=== PATIENT | male | born 1955 | race African-American/Black ===

== ENCOUNTER → 2020-12-22 | Outpatient (CLI) | payer OTHER ==
[~2020-12-22] MED LIST: ASA81BEC PO; ASPIRIN325; CO-ENZYME Q-1010 MG PO; IMDUR 60 MG TAB60 M1 PO; LISINOPRIL20 MG PO; LOSARTAN POTAS100 MG PO; METFORMIN HCL500 MG PO; METOPROLOL SUCC25 M1 PO; NITROGLYCERIN0.4 MG SUBLING; OMEGA-3 FISH1200 MG PO; SIMVASTATIN40 MG PO; SPIRONOLACTONE25 MG PO; VITAMIN B-121000 MC3 PO; ZOCOR 20 MG TAB20 M1 PO; ZPAK PO
== END ==
LOC: LAB 09:35
PROVIDERS: ATTEND Surgery
DX: Z01.812 Encounter for preprocedural laboratory examination (principal); Z20.822 Contact with and (suspected) exposure to COVID-19

== ENCOUNTER 2020-12-27 06:08 | Day surgery (SDC) | payer OTHER ==
[~2020-12-27] VITALS: Ht 188 cm; Wt 114.3 kg
--- NOTE | ~2020-12-27 | O ---
[facility] [place] [address] OPERATIVE REPORT Name: ED JUAN JR Room #: 150-3 [facility]..#: [id number] Admission: 12/27/20 Attend Phys: Mukul Yang MD Discharge: Date of : 53 Report #: [id number] THIS REPORT FOR: cc: Miriam Washington MD, Cora A. MD Franey,Mukul Aggarwal MD ~ DATE OF SERVICE: 12/27/[address] Mukul Yang and Dr. Miriam Washington. PREOPERATIVE DIAGNOSIS: Ventral umbilical hernia. POSTOPERATIVE DIAGNOSIS: Ventral umbilical hernia. PROCEDURE: Ventral umbilical hernia repair with Ventralex hernia mesh. SURGEON: Mukul Yang MD ANESTHESIA: Local IV sedation. DESCRIPTION OF PROCEDURE: The patient was brought to the operating room and placed on operative table in the supine position. Sequential compression devices were in place for DVT prophylaxis. There was no indication for preoperative antibiotics. The patient underwent IV sedation and the abdomen was then prepped and draped in a sterile fashion. Skin and subcutaneous tissue were then infiltrated with 0.5% Marcaine and 1% Xylocaine with epinephrine. Transverse infraumbilical skin incision was then performed using #15 scalpel blade. Hemostasis obtained using electrocautery. Dissection was carried down through subcutaneous tissue to this hernia sac, which was dissected free and excised. Upon dissecting further cephalad from the umbilicus, there was a second small hernia defect with some incarcerated preperitoneal fat. This incarcerated preperitoneal fat was then dissected free and reduced back through the small fascial defect, which was then closed with an interrupted [id number] 0 Prolene suture. A medium Ventralex hernia mesh was then inserted intraabdominally and then secured transfascially circumferentially using interrupted horizontal mattress 0 Prolene sutures. The fascia was then closed over the mesh using interrupted gshsyv-oj-bchpf #1 PDS sutures. The tails were cut and secured superiorly and inferiorly with simple interrupted 2-0 Vicryl sutures. A single suture was then placed through the remaining opening at the side of the Ventralex tails. The umbilicus was then tacked to the fascia using a simple interrupted 2-0 chromic suture. Deep and superficial subcutaneous tissue was then reapproximated using simple interrupted 2-0 chromic sutures and the skin then closed with a running 4-0 subcuticular Vicryl stitch. The wound was then dressed with Dermabond, Telfa, 4 x 4 gauze, sponge and tape. The patient was then awakened from the IV sedation and taken to the recovery [address] [address] OPERATIVE REPORT Name: ED JUAN Room #: 150-3 [facility] M..#: [id number] Admission: 12/27/20 Attend Phys: Mukul Yang MD Discharge: Date of : 53 Report #: [id number] room awake, alert and in good condition. Estimated blood loss was approximately 10 mL and the patient tolerated procedure well. All sponge, lap and instrument counts correct x 2. By: [id number] Mukul Yang MD /nt
[2020-12-27 06:42] VITALS: BP 117/64
[2020-12-27 07:05] LABS: CALCIUM 9.1 mg/dL (8.5-10.1); CREATININE 1.3 mg/dL (0.7-1.3); POTASSIUM 4.1 mmol/L (3.5-5.1)
[2020-12-27] MEDS ORDERED: HYDROCODON-ACE1 EAC7 PO (08:16)
[2020-12-27 10:30] VITALS: BP 117/64
== END 2020-12-27 11:20 | disposition home or self-care (01) ==
LOC: OR 06:08 → TBA 06:08 → OR 09:27
PROVIDERS: ATTEND Surgery
DX: K42.0 Umbilical hernia with obstruction, without gangrene (principal); I10 Essential (primary) hypertension; E78.00 Pure hypercholesterolemia, unspecified; E11.9 Type 2 diabetes mellitus without complications; J45.909 Unspecified asthma, uncomplicated; G47.30 Sleep apnea, unspecified; Z98.890 Other specified postprocedural states; Z79.899 Other long term (current) drug therapy; Z79.82 Long term (current) use of aspirin
CPT/HCPCS: 50010; 50101; 50130; 50386; 50417; 54118; 56524; 56525; 56526; 62110; 62850; 70005

== ENCOUNTER 2021-01-03 15:24 | Inpatient (IN) | payer OTHER ==
[~2021-01-03] VITALS: Ht 190.5 cm; Wt 110.2 kg
[2021-01-03] VITALS (11 sets, daily range): BP systolic 91–115; BP diastolic 55–80
[~2021-01-03 15:24] MED LIST changes: +HYDROCODON-ACE1 EAC7 PO
[2021-01-03 16:01] LABS: ABSOLUTE NEUTROPHILS 11.4 thou/uL (1.4-8.2); BASOPHILS 0.3 % (0.0-2.0); EOSINOPHILS 1.5 % (0.0-3.0); HEMATOCRIT 36.4 % (42.0-52.0); HEMOGLOBIN 11.3 gm/dL (14.0-18.0); LYMPHOCYTES 8.1 % (24.0-44.0); MCH 25.8 pg (26.0-34.0); MCHC 30.9 g/dL (28.0-37.0); MCV 83.3 fL (80.0-100.0); MONOCYTES 5.7 % (1.0-8.0); PLATELET COUNT 196 thou/uL (150-400); POLYS 84.4 % (36.0-66.0); RBC 4.37 mil/uL (4.50-6.00); RDW 14.1 % (10.5-14.5); WBC 13.5 thou/uL (4.0-11.0)
[2021-01-03 16:14] LABS: CALCIUM 8.8 mg/dL (8.5-10.1); POTASSIUM 3.4 mmol/L (3.5-5.1)
--- NOTE | 2021-01-03 16:18 | NUR ---
PT'S , ELIZABETH, [phone]
[2021-01-03 16:29] LABS: ALBUMIN 3.5 g/dL (3.4-5.0); DIRECT BILIRUBIN 0.3 mg/dL (<0.1-0.2); TOTAL BILIRUBIN 0.6 mg/dL (0.2-1.0); TOTAL PROTEIN 7.4 g/dL (6.4-8.2); TROPONIN-I 0.2 ng/mL (<0.06)
[2021-01-03 16:49] LABS: URINE BILIRUBIN NEGATIVE (Negative); URINE BLOOD 2+ (Negative); URINE CLARITY CLEAR; URINE COLOR YELLOW; URINE GLUCOSE-RANDOM* 1+ (Negative); URINE KETONES NEGATIVE (Negative); URINE LEUKOCYTES-REFLEX NEGATIVE (Negative); URINE NITRITE-REFLEX NEGATIVE (Negative); URINE PROTEIN (DIPSTICK) 3+ (Negative); URINE SPECIFIC GRAVITY 1.025 (1.005-1.035)
[2021-01-03 17:00] LABS: MUCUS None Seen strn/LPF (None Seen); SQUAMOUS 4-10 Moderate /LPF (0-3)
[2021-01-03 17:01] LABS: BACTERIA-REFLEX 1-9 Few /HPF (None Seen); CRYSTALS None Seen /LPF (None Seen); FINE GRANULAR CASTS 0-3 Few /LPF (None Seen); URINE WBC-REFLEX 6-15 Few /HPF (0-5)
[2021-01-03 17:40] LABS: APTT 25.5 Seconds (24.5-32.8); INR 1.1; PROTIME 11.4 Seconds (9.3-11.4)
--- NOTE | 2021-01-03 18:30 | NUR ---
DR HORTA AT BEDSIDE SEEING PATIENT
[2021-01-03 22:09] LABS: HEMATOCRIT 33.6 % (42.0-52.0); HEMOGLOBIN 10.5 gm/dL (14.0-18.0); MCH 26.3 pg (26.0-34.0); MCHC 31.3 g/dL (28.0-37.0); MCV 83.9 fL (80.0-100.0); RDW 14.2 % (10.5-14.5); WBC 10.1 thou/uL (4.0-11.0)
[2021-01-04] VITALS (44 sets, daily range): BP systolic 87–153; BP diastolic 51–87
--- NOTE | 2021-01-04 01:00 | NUR ---
PT ARRIVED TO ICU RM 236 AT 2114. THIS RN ASSUMED CARE AT THIS TIME. PT IS AXOX4, WEARING 2L NC, AND ON BEDREST POST IR PROCEDURE. WILL FOLLOW PLAN OF CARE AND CONTINUE TO MONITOR.
[2021-01-04 06:26] LABS: HEMOGLOBIN 9.2 gm/dL (14.0-18.0); MCH 26.5 pg (26.0-34.0); MCHC 31.8 g/dL (28.0-37.0); MCV 83.1 fL (80.0-100.0); RBC 3.49 mil/uL (4.50-6.00); RDW 13.8 % (10.5-14.5); WBC 8.6 thou/uL (4.0-11.0)
[2021-01-04] MEDS ORDERED: JARDIANCE10 MG PO (06:31)
[2021-01-04 06:41] LABS: CREATININE 1.7 mg/dL (0.7-1.3)
[2021-01-04 06:42] LABS: POTASSIUM 5.4 mmol/L (3.5-5.1); TROPONIN-I 1.95 ng/mL (<0.06)
--- NOTE | 2021-01-04 07:17 | EKG ---
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 : 1955 Requested By: Rashawn Grewal Order Number: [id number] MD: Ammon Sharma Measurements Intervals [place] Rate: 115 P: 65 NC: 139 QRS: -36 QRSD: 91 T: 92 QT: 356 QTc: 493 Interpretive Statements Sinus tachycardia Abnormal R-wave progression, early transition Probable left ventricular hypertrophy Ischemic changes lateral leads BOrderline ST elevation V1-2 Borderline prolonged QT interval Compared to ECG 07/03/2010 20:40:54 Sinus rhythm no longer present Electronically Signed On 01-04-2021 7:17:31 CDT by Ammon Sharma [email or web address] <ELECTRONICALLY SIGNED> By: Ammon Sharma MD, FACC 01/04/21 0717 1601 1601 Ammon Sharma MD, [facility] /EPI
--- NOTE | 2021-01-04 09:01 | EKG ---
[place] [address] [facility] [address] [place] [address] ELECTROCARDIOGRAM REPORT Name: ED JUAN Room #: 236-P ADM IN M.R.#: [id number] Admission: 01/03/21 Attend Phys: Sendy Mott MD Discharge: Date of : 53 Report #: [id number] [facility] Test Date: 2021-01-04 Test Time: 07:37:14 Pat Name: ED JUAN Department: Room: 236 P Gender: M Certified Juvenile Probation Officer: NORRIS : 1955 Requested By: Ray Almonte Order Number: [id number] MD: Brice Craft Measurements Intervals [place] Rate: 90 P: 39 AK: 139 QRS: -31 QRSD: 89 T: -5 QT: 395 QTc: 484 Interpretive Statements Sinus rhythm Abnormal R-wave progression, early transition Leftward axis Nonspecific T wave abnormality Compared to ECG 01/03/2021 16:01:22 ST and T wave abnormality most prominent Sinus tachycardia no longer present Electronically Signed On 01-04-2021 9:00:56 CDT by Brice Craft [email or web address] <ELECTRONICALLY SIGNED> By: Brice Craft MD, [facility] 01/04/21 0900 0737 0737 Brice Craft MD, [facility] /EPI
--- NOTE | 2021-01-04 10:22 | 2DMMODE ---
[facility] [address] [place] [address] 2 D/M-MODE ECHOCARDIOGRAM Name: ED JUAN Room #: 236-P ADM IN M.R.#: [id number] Admission: 01/03/21 Attend Phys: Sendy Mott MD Discharge: Date of : 53 Report #: [id number] THIS REPORT FOR: cc: Miriam Washington MD, Cora A. MD Lammoglia, Francisco J. MD ~ APPROVED REPORT Study performed: 01/04/2021 08:13:45 EXAM: Comprehensive 2D, Doppler, and color-flow Echocardiogram Patient Location: ICU Room #: 236 Status: routine BSA: 2.39 HR: 86 bpm BP: 124/80 mmHg Rhythm: NSR Other Information Study Quality: Good Indications Pulmonary Embolism Diabetes Dyspnea CAD Hypertension/HDD 2D Dimensions RVDd: 57.13 mm IVSd: 9.84 (7-11mm) LVOT Diam: 22.72 (18-24mm) LVDd: 36.01 mm PWd: 9.13 (7-11mm) Ascending Ao: 32.73 (22-36mm) LVDs: 25.19 (25-40mm) Left Atrium: 31.76 (27-40mm) Aortic Root: 33.28 mm IVC: 28.00 mm Volumes Left Atrial Volume (Systole) Single Plane 4CH: 36.05 mL Single Plane 2CH: 39.95 mL LA ESV Index: 18.00 mL/m2 Aortic Valve [facility] [address] [place] [address] 2 D/M-MODE ECHOCARDIOGRAM Name: ED JUAN Room #: 236-P [facility] IN M.R.#: [id number] Admission: 01/03/21 Attend Phys: Alona Kumar Discharge: Date of : 53 Report #: [id number] AoV Peak Star.: 0.86 m/s AO Peak Gr.: 2.94 mmHg LVOT Max P.79 mmHg LVOT Max V: 0.83 m/s RANDAL Vmax: 3.94 cm2 Mitral Valve E/A Ratio: 0.8 MV Decel. Time: 215.39 ms MV E Max Star.: 0.56 m/s MV A Star.: 0.70 m/s MV PHT: 62.46 ms IVRT: 129.18 ms Pulmonary Valve PV Peak Star.: 0.77 m/s PV Peak Gr.: 2.36 mmHg Pulmonary Vein P Vein S: 0.40 m/s P Vein A: 0.21 m/s P Vein D: 0.30 m/s P Vein A Dur.: 101.5 msec P Vein S/D Ratio: 1.33 Tricuspid Valve TR Peak Star.: 2.52 m/s TR Peak Gr.: 25.43 mmHg PA Pressure: 40.00 mmHg Left Ventricle The left ventricle is normal size. There is normal LV segmental wall motion. There is normal left ventricular wall thickness. The left ventricular systolic function is normal. The left ventricular ejection fraction is within the normal range. LVEF is 55-60%. Grade I - abnormal relaxation pattern. Right Ventricle Right ventricle is dilated. The right ventricle free wall is mildly hypertrophied. Right ventricle is hypokinetic. Atria The left atrium size is normal. Right atrium is dilated. There is a mobile stranding in the right atrium likely a Chiari network. IF CLINICALLY RELEVANT CONSIDER SIMRAN FOR FURTHER CHARACTERIZATION Aortic Valve The aortic valve is normal in structure. No aortic regurgitation is present. There is no aortic valvular stenosis. [facility] [address] [place] [address] 2 D/M-MODE ECHOCARDIOGRAM Name: ED JUAN Room #: 236-P [facility].#: [id number] Admission: 01/03/21 Attend Phys: Alona Kumar Discharge: Date of : 53 Report #: [id number] Mitral Valve The mitral valve is normal in structure. Trace mitral regurgitation. No evidence of mitral valve stenosis. Tricuspid Valve The tricuspid valve is normal in structure. There is mild tricuspid regurgitation. Estimated PAP 40 mmHg. There is mild-moderate pulmonary hypertension. Pulmonic Valve The pulmonary valve is normal in structure. Trace pulmonic regurgitation. Great Vessels The aortic root is normal in size. The inferior vena cava is dilated with no inspiratory collapse. Pericardium There is no pericardial effusion. <Conclusion> The left ventricle is normal size. LVEF is 55-60%. Right ventricle is dilated. Right ventricle is hypokinetic. The right ventricle free wall is mildly hypertrophied. Right atrium is dilated. There is a mobile stranding in the right atrium likely a Chiari network. IF CLINICALLY RELEVANT CONSIDER SIMRAN FOR FURTHER CHARACTERIZATION The aortic valve is normal in structure. The mitral valve is normal in structure. Trace mitral regurgitation. The tricuspid valve is normal in structure. There is mild tricuspid regurgitation. Estimated PAP 40 mmHg. There is mild-moderate pulmonary hypertension. The pulmonary valve is normal in structure. Trace pulmonic regurgitation. There is no pericardial effusion. <ELECTRONICALLY SIGNED> By: Eliezer Love MD 01/04/21 1021 1021 1021 Eliezer Love MD /INF
--- NOTE | 2021-01-04 10:55 | NUR ---
chart review, cm visited with pt and his at bedside, cm cont to wear face mask and shield during visit. pt able to make his needs know, a & o x4. willard reported he is independent, manage own medication, drives vehicle. live in house with his , about 12 steps up from basement " even after last surgery was able to walk up to get into home with out diff. use cpap to sleep. no hh or rehab in past"/willard. will cont following as needed for dc needs. discussed during am rounds.
[2021-01-04 16:38] LABS: HEMATOCRIT 32.4 % (42.0-52.0); HEMOGLOBIN 10.1 gm/dL (14.0-18.0); MCH 26.4 pg (26.0-34.0); MCHC 31.1 g/dL (28.0-37.0); MCV 84.7 fL (80.0-100.0); RBC 3.82 mil/uL (4.50-6.00); RDW 14.7 % (10.5-14.5); WBC 9.8 thou/uL (4.0-11.0)
[2021-01-04 17:49] LABS: ALBUMIN 3.4 g/dL (3.4-5.0); DIRECT BILIRUBIN 0.2 mg/dL (<0.1-0.2); TOTAL BILIRUBIN 0.4 mg/dL (0.2-1.0); TOTAL PROTEIN 6.9 g/dL (6.4-8.2)
--- NOTE | 2021-01-04 17:57 | NUR ---
ASSUMED CARE OF PATIENT AT 1400, ALERT AND ORIENTED. STABL VSS. HEPARIN GTT INFUSING. APPT THERAPEUTIC. REDRAW SCHEDULED FOR AM. CONSULT CARDIOLOGY FOR SIMRAN IN AM. NPO STARTS AT MIDNOC. PATIENT TRANSFERED TO CCU ROOM 204.
[2021-01-05 03:33] VITALS: BP 137/86
[2021-01-05 05:17] LABS: HEMATOCRIT 29.7 % (42.0-52.0); HEMOGLOBIN 9.6 gm/dL (14.0-18.0); MCH 26.8 pg (26.0-34.0); MCHC 32.3 g/dL (28.0-37.0); MCV 82.9 fL (80.0-100.0); RBC 3.58 mil/uL (4.50-6.00); RDW 14.1 % (10.5-14.5); WBC 8.2 thou/uL (4.0-11.0)
--- NOTE | 2021-01-05 08:10 | NUR ---
SLEPT MOST OF SHIFT. DENIES COMPLAINTS OF SHORTNESS OF AIR OR PAIN. STAYED IN BED THROUGHOUT SHIFT. MAINTAIN HEPARIN GTT PER PROTOCOL. NPO PAST MIDNIGHT FOR AM SIMRAN. WORKING ON GOALS AND PLAN OF CARE FOR NOC. PROGRESSING SLOWLY TOWARDS DISCHARGE GOALS. CONTINUE TO ASSES CLOSELY.
[2021-01-05 08:20] LABS: CALCIUM 8.7 mg/dL (8.5-10.1); CREATININE 1.4 mg/dL (0.7-1.3); POTASSIUM 4.2 mmol/L (3.5-5.1)
--- NOTE | 2021-01-05 09:13 | NUR ---
PT TRANSFERRED BACK TO ROOM 204 AT 0900 IN BED BY RN. STEINER. HR 78: BP 131/61; R 17; SAT 95% ON RA. PT AWAKE AND ALERT. TOLERATED SIMRAN WELL. DRANK WATER WITHOUT DIFFICULTY. REPORT TO KAM DAWKINS. 300 CC NS INFUSED
--- NOTE | 2021-01-05 09:52 | NUR ---
ASSUMED PT CARE AT 0700. PT WAS PREPARING TO GO FOR HIS SIMRAN. PT NOTIFIED OF PLAN OF CARE FOR THE DAY THROUGH TEXT. PT RETURNED FROM HIS SIMRAN AT 0900. PT DENIES PAIN. PT WENT FOR ABD ULTRASOUND AT 0915. VSS. WILL CONTINUE TO MONITOR.
[2021-01-05 11:21] LABS: % SATURATION 16 % (20-39); IRON 38 ug/dL (65-175); TIBC 245 ug/dL (250-450)
--- NOTE | 2021-01-05 12:18 | TEE ---
[facility] [place] [address] TRANSESOPHAGEAL ECHOCARDIOGRAM Name: ED JUAN Room #: 204-P [facility] IN M.R.#: [id number] Admission: 01/03/21 Attend Phys: Sendy Mott MD Discharge: Date of : 53 Report #: [id number] THIS REPORT FOR: cc: Miriam Washington MD, Cora A. MD Santiago, Patrick MD [facility] ~ APPROVED REPORT Study performed: 01/05/2021 07:48:21 EXAM: Comprehensive 2D, Doppler, and color-flow Echocardiogram Patient Location: In-Patient Room #: 9 Status: routine BSA: 2.39 HR: 85 bpm BP: 145/81 mmHg Rhythm: NSR Other Information Study Quality: Good Indications Thrombus Echo Enhancing Agent Indication: Rule out Shunt Agent(s) / Amount(s) Used: Agitated Saline 7 cc Procedure After obtaining informed consent, patient underwent transesophageal echo in the [facility]. Type of Sedation : Conscious Sedation Sedation was administered by Nurse. Sedation was achieved intravenously with: Versed (4 mg) Fentanyl (50 mcg) Transesophageal probe was inserted and advanced into esophagus without difficulty by Ammon Sharma MD. Echo enhancement indication: R/O Septal defect. Echo enhancement agent administered: Agitated Saline The SIMRAN was performed without complications. Throughout the procedure, the blood pressure, pulse oximetry, cardiac rhythm, and rate were monitored. [facility] [address] [place] [address] TRANSESOPHAGEAL ECHOCARDIOGRAM Name: ED JUAN JR Room #: 204-P ADM IN M.R.#: [id number] Admission: 01/03/21 Attend Phys: Alona Kumar Discharge: Date of : 53 Report #: [id number] The patient tolerated the procedure without adverse effects. Recovery from conscious sedation was uneventful and vital signs were stable. Left Ventricle The left ventricle is normal size. There is normal LV segmental wall motion. There is normal left ventricular wall thickness. The left ventricular systolic function is normal. The left ventricular ejection fraction is within the normal range. LVEF is 55-60%. Right Ventricle Right ventricle is dilated. Right ventricle is hypokinetic. Atria The left atrium size is normal. Interatrial septum is intact without evidence of ASD or PFO. Right atrium is dilated. Chiari network vs thrombus is noted in the right atrium. Aortic Valve The aortic valve is normal in structure. No aortic regurgitation is present. There is no aortic valvular stenosis. Mitral Valve The mitral valve is normal in structure. Trace mitral regurgitation. No evidence of mitral valve stenosis. Tricuspid Valve The tricuspid valve is normal in structure. Mild tricuspid regurgitation. Pulmonic Valve The pulmonary valve is normal in structure. There is no pulmonic valvular regurgitation. Great Vessels The aortic root is normal in size. IVC is dilated. Pericardium There is no pericardial effusion. <Conclusion> Consent was obtained Esophageal probe was advanced without difficulty Normal left ventricular size/wall thickness Ejection fraction 55% [facility] [address] [place] [address] TRANSESOPHAGEAL ECHOCARDIOGRAM Name: ED JUAN Room #: 204-P ADM IN M.R.#: [id number] Admission: 01/03/21 Attend Phys: Alona Kumar Discharge: Date of : 53 Report #: [id number] Normal atrial size Right ventricle mildly dilated/hypokinetic Normal aortic valve structure and function Normal mitral valve structure and function Left atrial appendage, no obvious mass or clot detected No evidence of tricuspid valve insufficiency Linear mobile echodensity in the high right atrium with apparent insertion in the vena cava This mobile echodensity suspicious for clot, - 2 cm in length and 0.6 cm in width Aorta: no calcification detected No evidence of ASD/VSD by color-flow Doppler study. Patient tolerate procedure well <ELECTRONICALLY SIGNED> By: Ammon Sharma MD, FACC 01/05/218 17 17 Ammon Sharma MD, FACC /INF
[2021-01-05 15:18] VITALS: BP 149/88
[2021-01-05 19:39] VITALS: BP 136/87
[2021-01-06 04:14] VITALS: BP 152/79
--- NOTE | 2021-01-06 06:50 | NUR ---
PT SLEPT ON AND OFF THRU THE NOC, HEPARIN GTT TITRATED PER DVT PROTOCOL, PT UP ADLIB IN ROOM, ASSESSMENT CHARTED, VSS, NO C/O PAIN, WILL CON'T TO MONITOR PER PPOC.
[2021-01-06 07:35] VITALS: BP 129/82
[2021-01-06 09:11] LABS: HEMATOCRIT 31.1 % (42.0-52.0); RDW 13.9 % (10.5-14.5); WBC 9.3 thou/uL (4.0-11.0)
[2021-01-06 09:13] LABS: MCH 26.6 pg (26.0-34.0); MCHC 32.1 g/dL (28.0-37.0); MCV 82.9 fL (80.0-100.0); PLATELET COUNT 175 thou/uL (150-400); RBC 3.75 mil/uL (4.50-6.00)
[2021-01-06 09:19] LABS: ALBUMIN 3.2 g/dL (3.4-5.0); CALCIUM 8.9 mg/dL (8.5-10.1); CREATININE 1.4 mg/dL (0.7-1.3); MAGNESIUM 1.9 mg/dL (1.8-2.4); PHOSPHORUS 2.5 mg/dL (2.6-4.7); TOTAL BILIRUBIN 0.5 mg/dL (0.2-1.0); TOTAL PROTEIN 6.8 g/dL (6.4-8.2)
[2021-01-06 09:49] LABS: ABSOLUTE NEUTROPHILS 6.8 thou/uL (1.4-8.2); PLATELET ESTIMATE NORMAL
[2021-01-06 11:52] VITALS: BP 102/58
--- NOTE | 2021-01-06 12:08 | NUR ---
PT SITTING UP IN CHAIR FACETIMING FAMILY. VSS. NOON ASSESSMENT PERFORMED. VSS. WILL CONTINUE TO MONITOR.
[2021-01-06 15:34] VITALS: BP 109/62
[2021-01-06 19:50] VITALS: BP 124/59
--- NOTE | 2021-01-07 04:35 | NUR ---
PT RESTING QUIETLY IN ROOM HEPARIN INFUSING, VSS, NO C/O PAIN, ASSESSMENT CHARTED, WILL CON'T TO MONITOR PER PPOC.
[2021-01-07 04:36] VITALS: BP 135/72
[2021-01-07 04:41] LABS: ABSOLUTE RETIC COUNT 0.1171 10^6/uL; OBSERVED RETIC COUNT 3.22 % (0.6-2.6)
[2021-01-07 05:06] LABS: CHOLESTEROL 108 mg/dL (<200); HDL CHOLESTEROL 29 mg/dL (>40); LDL CHOLESTEROL 55 mg/dL (<100); TC:HDL 3.7 Ratio (Not establshd); TRIGLYCERIDE 120 mg/dL (<150); VLDL 24 mg/dL (<40)
[2021-01-07 05:07] LABS: SERUM ASSESSMENT Clear
[2021-01-07 05:27] LABS: FOLIC ACID 11.3 ng/mL (8.6-58.9)
[2021-01-07 06:06] LABS: HAV IgM AB (ANTI-HAV IgM) Negative (Negative); HEPATITIS B SURFACE AG Negative (Negative); HEPATITIS C VIRUS AB <0.1 (0.0-0.9)
[2021-01-07 07:13] VITALS: BP 139/67
[2021-01-07 11:13] VITALS: BP 131/64
[2021-01-07 16:59] VITALS: BP 118/61
[2021-01-07 19:52] VITALS: BP 127/66
[2021-01-08 03:15] VITALS: BP 135/73
--- NOTE | 2021-01-08 06:39 | NUR ---
SLEPT MOST OF SHIFT. DENIES COMPLAINTS OF CHEST PAIN OR SHORTNESS OF AIR THIS SHIFT. UP AD TRAY IN ROOM WITH STEADY GAIT. PROGRESSING TOWARDS DISCHARGE GOALS SLOWLY. WORKING ON GOALS AND PLAN OF CARE FOR NOC. MAINTAIN HEPARIN GTT PER PROTOCOL. CONTINUE TO ASSES CLOSELY.
[2021-01-08 06:41] LABS: ALBUMIN 2.8 g/dL (3.4-5.0); DIRECT BILIRUBIN 0.1 mg/dL (<0.1-0.2); TOTAL BILIRUBIN 0.4 mg/dL (0.2-1.0); TOTAL PROTEIN 6.3 g/dL (6.4-8.2)
[2021-01-08 07:49] VITALS: BP 150/79
--- NOTE | 2021-01-08 09:31 | 2DMMODE ---
[facility] [place] [address] 2 D/M-MODE ECHOCARDIOGRAM Name: ED JUAN Room #: 204-P ADM IN M.R.#: [id number] Admission: 01/03/21 Attend Phys: Sendy Mott MD Discharge: Date of : 53 Report #: [id number] THIS REPORT FOR: cc: Miriam Washington MD, Cora A. MD Santiago, Patrick MD [facility] ~ APPROVED REPORT Study performed: 01/08/2021 08:53:39 EXAM: Limited 2D, Doppler, and color-flow Echocardiogram with contrast Patient Location: Bedside Room #: 204 Status: routine BSA: 2.41 HR: 59 bpm BP: 150/79 mmHg Rhythm: NSR Other Information Study Quality: Adequate Indications Limited follow up echo for right atrial thrombus. Hx: Pulmonary embolism, CAD, stents. Aortic Valve AoV Peak Star.: 1.22 m/s AO Peak Gr.: 5.92 mmHg Tricuspid Valve TR Peak Star.: 3.00 m/s RAP Estimate: 5.00 mmHg TR Peak Gr.: 36.05 mmHg PA Pressure: 41.00 mmHg Left Ventricle The left ventricle is normal size. There is normal LV segmental wall motion. Left ventricular systolic function is normal. LVEF is 55-60%. Atria Chiari network vs thrombus noted in the right atrium. Aortic Valve [facility] [address] [place] [address] 2 D/M-MODE ECHOCARDIOGRAM Name: ED JUAN Room #: 204-P ADM IN M.R.#: [id number] Admission: 01/03/21 Attend Phys: Alona Kumar Discharge: Date of : 53 Report #: [id number] The aortic valve is normal in structure. No aortic regurgitation is present. There is no aortic valvular stenosis. Mitral Valve The mitral valve is normal in structure. Mild mitral regurgitation. Tricuspid Valve The tricuspid valve is normal in structure. Mild tricuspid regurgitation. Estimated PAP is 40-45mmHg. Great Vessels IVC is normal in size and collapses >50% with inspiration. Pericardium There is no pericardial effusion. <Conclusion> Normal left ventricle size/wall thickness Ejection fraction 55% Mild right atrial enlargement No significant valvular dysfunction detected by limited color-flow Doppler study Echogenicity/mobile detected in the high right atrium, poorly seen but not as prominent as on previous transthoracic echocardiogram last week. No pericardial effusion <ELECTRONICALLY SIGNED> By: Ammon Sharma MD, FACC 01/08/21930 0 0 Ammon Sharma MD, FACC /INF
[2021-01-08 11:07] LABS: CERULOPLASMIN 35.9 mg/dL (16.0-31.0)
[2021-01-08 11:14] VITALS: BP 121/65
[2021-01-08] MEDS ORDERED: ELIQUIS5 M1 PO (12:11)
--- NOTE | 2021-01-08 13:21 | NUR ---
PT IS AXOX4, PLEASANT. HEPARIN GTT AT 18.26ML/HR. APTT 63.8 AT 0600, 60.2 AT 1200. HEPARIN D/C, START ORAL RX ELIQUIS. PT DENIES PAIN, SOA. LOW FALL RISK. PT UP AD TRAY TO TOILET. DR MOSELEY CONSULTED. CARDIOLOGY CONSULTED. GI CONSULTED. PT TO DISCHARGE TO HOME WITH . DISCHARGE EDUCATION CONDUCTED ON RX, FOLLOW UP APPTS, PRECAUTIONS FOR BLEEDING WITH MEDICATION.
[2021-01-08 13:53] VITALS: BP 121/65
[2021-01-09 15:07] LABS: MITOCHONDRIAL ANTIBODY <20.0 Units (0.0-20.0); SMOOTH MUSCLE ANTIBODY 7 Units (0-19)
== END 2021-01-08 15:19 | disposition home or self-care (01) | DRG 853 ==
LOC: ER 15:24 → 2N 17:52 → EROBS 17:52 → ICU 19:05 → 2N 01-04 17:42
PROVIDERS: Emergency Medicine; Internal Medicine; Internal Medicine Pulmonary Disease; Nurse Practitioner; Nurse Practitioner Adult Health; Specialist; ADMIT Hospitalist; ATTEND Hospitalist
PROC: B31S1ZZ Fluoroscopy of Right Pulmonary Artery using Low Osmolar Contrast (ICD-10-PCS; principal; 2021-01-03)
PROC: B31T1ZZ Fluoroscopy of Left Pulmonary Artery using Low Osmolar Contrast (ICD-10-PCS; principal; 2021-01-03)
PROC: 02CQ3ZZ Extirpation of Matter from Right Pulmonary Artery, Percutaneous Approach (ICD-10-PCS; principal; 2021-01-03)
PROC: 02CP3ZZ Extirpation of Matter from Pulmonary Trunk, Percutaneous Approach (ICD-10-PCS; principal; 2021-01-03)
PROC: 02CR3ZZ Extirpation of Matter from Left Pulmonary Artery, Percutaneous Approach (ICD-10-PCS; principal; 2021-01-03)
PROC: 5A09357 Assistance with Respiratory Ventilation, Less than 24 Consecutive Hours, Continuous Positive Airway Pressure (ICD-10-PCS; 2021-01-04)
PROC: 5A09357 Assistance with Respiratory Ventilation, Less than 24 Consecutive Hours, Continuous Positive Airway Pressure (ICD-10-PCS; 2021-01-05)
PROC: B24BZZ4 Ultrasonography of Heart with Aorta, Transesophageal (ICD-10-PCS; 2021-01-05)
DX: A41.9 Sepsis, unspecified organism (principal); J96.01 Acute respiratory failure with hypoxia; I26.02 Saddle embolus of pulmonary artery with acute cor pulmonale; K72.00 Acute and subacute hepatic failure without coma; N17.9 Acute kidney failure, unspecified; E87.1 Hypo-osmolality and hyponatremia; N39.0 Urinary tract infection, site not specified; D62 Acute posthemorrhagic anemia; I82.432 Acute embolism and thrombosis of left popliteal vein; R77.8 Other specified abnormalities of plasma proteins; I95.9 Hypotension, unspecified; G47.33 Obstructive sleep apnea (adult) (pediatric); E78.5 Hyperlipidemia, unspecified; E78.00 Pure hypercholesterolemia, unspecified; E87.6 Hypokalemia; I12.9 Hypertensive chronic kidney disease with stage 1 through stage 4 chronic kidney disease, or unspecified chronic kidney disease; E11.22 Type 2 diabetes mellitus with diabetic chronic kidney disease; N18.9 Chronic kidney disease, unspecified; E87.5 Hyperkalemia; I08.1 Rheumatic disorders of both mitral and tricuspid valves; D69.6 Thrombocytopenia, unspecified; E83.39 Other disorders of phosphorus metabolism; J45.20 Mild intermittent asthma, uncomplicated; I27.21 Secondary pulmonary arterial hypertension; I25.10 Atherosclerotic heart disease of native coronary artery without angina pectoris; Z20.822 Contact with and (suspected) exposure to COVID-19; Z79.82 Long term (current) use of aspirin; Z79.899 Other long term (current) drug therapy; Z79.84 Long term (current) use of oral hypoglycemic drugs; Z95.5 Presence of coronary angioplasty implant and graft
CPT/HCPCS: 10078; 10081

== ENCOUNTER → 2021-01-16 | Outpatient (CLI) | payer OTHER ==
[~2021-01-16] MED LIST changes: +ELIQUIS5 M1 PO; +JARDIANCE10 MG PO
== END ==
LOC: SJCVC 09:08
PROVIDERS: ATTEND Internal Medicine
DX: I10 Essential (primary) hypertension (principal); I25.10 Atherosclerotic heart disease of native coronary artery without angina pectoris; E78.00 Pure hypercholesterolemia, unspecified; E11.9 Type 2 diabetes mellitus without complications; G47.33 Obstructive sleep apnea (adult) (pediatric); E78.5 Hyperlipidemia, unspecified; E78.49 Other hyperlipidemia; E66.9 Obesity, unspecified; Z79.82 Long term (current) use of aspirin; Z79.84 Long term (current) use of oral hypoglycemic drugs; Z79.899 Other long term (current) drug therapy; Z95.5 Presence of coronary angioplasty implant and graft; Z86.711 Personal history of pulmonary embolism

== ENCOUNTER → 2021-02-12 | Outpatient (CLI) | payer OTHER | LOC: SJCVCIMAG 07:44 | PROVIDERS: ATTEND Internal Medicine | DX: I07.1 Rheumatic tricuspid insufficiency (principal); I10 Essential (primary) hypertension; E78.00 Pure hypercholesterolemia, unspecified; E11.9 Type 2 diabetes mellitus without complications; G47.33 Obstructive sleep apnea (adult) (pediatric); I25.10 Atherosclerotic heart disease of native coronary artery without angina pectoris; J44.9 Chronic obstructive pulmonary disease, unspecified; E78.5 Hyperlipidemia, unspecified; E66.9 Obesity, unspecified; Z95.1 Presence of aortocoronary bypass graft; Z95.5 Presence of coronary angioplasty implant and graft; Z95.828 Presence of other vascular implants and grafts; Z79.82 Long term (current) use of aspirin; Z79.84 Long term (current) use of oral hypoglycemic drugs; Z79.899 Other long term (current) drug therapy; Z82.49 Family history of ischemic heart disease and other diseases of the circulatory system ==

== ENCOUNTER → 2021-04-09 | Outpatient (CLI) | payer OTHER | LOC: SJCVCIMAG 07:18 | PROVIDERS: ATTEND Nuclear Medicine Nuclear Cardiology | DX: I26.99 Other pulmonary embolism without acute cor pulmonale (principal); I82.409 Acute embolism and thrombosis of unspecified deep veins of unspecified lower extremity; I25.10 Atherosclerotic heart disease of native coronary artery without angina pectoris; M79.661 Pain in right lower leg; I51.3 Intracardiac thrombosis, not elsewhere classified; E78.00 Pure hypercholesterolemia, unspecified; I51.0 Cardiac septal defect, acquired; E11.9 Type 2 diabetes mellitus without complications; R06.09 Other forms of dyspnea; G47.33 Obstructive sleep apnea (adult) (pediatric); E66.9 Obesity, unspecified; Z79.82 Long term (current) use of aspirin; Z79.84 Long term (current) use of oral hypoglycemic drugs; Z79.899 Other long term (current) drug therapy ==

== ENCOUNTER → 2021-05-14 | Outpatient (CLI) | payer OTHER | LOC: SJCVC 08:44 | PROVIDERS: ATTEND Internal Medicine | DX: I10 Essential (primary) hypertension (principal); I25.10 Atherosclerotic heart disease of native coronary artery without angina pectoris; E11.9 Type 2 diabetes mellitus without complications; R06.09 Other forms of dyspnea; E78.5 Hyperlipidemia, unspecified; G47.33 Obstructive sleep apnea (adult) (pediatric); E66.9 Obesity, unspecified; E78.00 Pure hypercholesterolemia, unspecified; E66.01 Morbid (severe) obesity due to excess calories; Z68.32 Body mass index [BMI] 32.0-32.9, adult; Z79.82 Long term (current) use of aspirin; Z79.899 Other long term (current) drug therapy ==

== ENCOUNTER → 2021-07-11 | Outpatient (CLI) | payer OTHER | LOC: SJCVCIMAG 08:45 | PROVIDERS: ATTEND Nuclear Medicine Nuclear Cardiology | DX: I82.409 Acute embolism and thrombosis of unspecified deep veins of unspecified lower extremity (principal); I26.99 Other pulmonary embolism without acute cor pulmonale; I51.3 Intracardiac thrombosis, not elsewhere classified; I25.10 Atherosclerotic heart disease of native coronary artery without angina pectoris; E78.00 Pure hypercholesterolemia, unspecified; M79.605 Pain in left leg; M79.604 Pain in right leg; G47.33 Obstructive sleep apnea (adult) (pediatric); Z79.82 Long term (current) use of aspirin; Z79.899 Other long term (current) drug therapy ==

== ENCOUNTER → 2021-07-26 | Outpatient (CLI) | payer OTHER | LOC: SJCVCIMAG 07:40 | PROVIDERS: ATTEND Internal Medicine | DX: I65.23 Occlusion and stenosis of bilateral carotid arteries (principal) ==

== ENCOUNTER → 2021-12-05 | Outpatient (CLI) | payer OTHER | LOC: SJCVC 09:55 | PROVIDERS: ATTEND Internal Medicine | DX: R94.31 Abnormal electrocardiogram [ECG] [EKG] (principal); I10 Essential (primary) hypertension; E78.00 Pure hypercholesterolemia, unspecified; G47.33 Obstructive sleep apnea (adult) (pediatric); E11.9 Type 2 diabetes mellitus without complications; J45.909 Unspecified asthma, uncomplicated; I25.10 Atherosclerotic heart disease of native coronary artery without angina pectoris; E78.5 Hyperlipidemia, unspecified; Z79.82 Long term (current) use of aspirin; Z79.84 Long term (current) use of oral hypoglycemic drugs; Z79.899 Other long term (current) drug therapy; Z95.5 Presence of coronary angioplasty implant and graft; Z95.818 Presence of other cardiac implants and grafts; Z82.49 Family history of ischemic heart disease and other diseases of the circulatory system ==